=== PATIENT | female | born 1995 | race Caucasian/White ===

== ENCOUNTER 2018-10-21 07:14 | Inpatient (IN) | payer OTHER ==
[~2018-10-21] VITALS: Ht 165.1 cm; Wt 108.4 kg
[2018-10-21] MEDS ORDERED: METHYLERGONOVINE 0.2 MG INJ IM PRN ×2 (08:00→13:00)
[2018-10-21] MEDS ORDERED: OXYTOCIN 30 UNITS/LR 500 ML IV PRN ×2 (08:00→13:00)
[2018-10-21] MEDS ORDERED: CARBOPROST 250 MCG INJ IM PRN ×2 (08:00→13:00)
[2018-10-21] MEDS ORDERED: MISOPROSTOL 200 MCG TAB PR PRN ×2 (08:00→13:00)
[2018-10-21] MEDS ORDERED: CEFAZOLIN 2 GM/50 ML (PMX) 50 ML IVPB SCH (08:00)
[2018-10-21] MEDS ORDERED: LACTATED RINGER'S 1,000 ML IV STA (08:06)
[2018-10-21 08:10] VITALS: Ht 165.1 cm; Wt 108.4 kg
[2018-10-21 08:11] VITALS: BP 112/73; RESP 18
[2018-10-21] MEDS ORDERED: CITRIC ACID/NA CITRATE 30 ML CUP PO ONE (09:00)
[2018-10-21] MEDS ORDERED: ONDANSETRON 4 MG INJ IV ONE (09:00)
[2018-10-21] MEDS ORDERED: OXYTOCIN 10 UNIT INJ ONE (10:23)
[2018-10-21] MEDS ORDERED: OXYTOCIN 30 UNITS/LR 500 ML BAG IV ONE (10:23)
[2018-10-21] MEDS ORDERED: morphine SULFATE/PF (10 MG/10 ML) INJ ONE (10:23)
[2018-10-21] MEDS ORDERED: DEXTROSE 50% 50 ML SYRINGE ONE (10:35)
[2018-10-21] MEDS ORDERED: PHENYLephrine (100 MCG/ML) 10ML SYG ONE (10:35)
[2018-10-21] MEDS ORDERED: METOCLOPRAMIDE 10 MG INJ ONE (10:46)
[2018-10-21] MEDS ORDERED: ONDANSETRON 4 MG INJ ONE (10:46)
[2018-10-21] MEDS ORDERED: KETOROLAC 30 MG INJ ONE (10:46)
[2018-10-21] MEDS ORDERED: DEXAMETHASONE 4 MG/ML 1 ML INJ ONE (10:46)
[2018-10-21] MEDS ORDERED: NALBUPHINE HCL (10 MG/1 ML) INJ IV PRN (11:00)
[2018-10-21] MEDS ORDERED: ONDANSETRON 4 MG INJ IV PRN (11:00)
[2018-10-21] MEDS ORDERED: HYDROCODONE/APAP (5/325) TAB PO PRN (11:00)
[2018-10-21] MEDS ORDERED: DIPHENHYDRAMINE 50 MG INJ IV PRN (11:00)
[2018-10-21] MEDS ORDERED: HYDROmorphONE 0.5 MG/0.5 ML SYG IV PRN ×2 (11:00)
[2018-10-21] MEDS ORDERED: KETOROLAC 30 MG INJ IV PRN (11:00)
[2018-10-21] MEDS ORDERED: TRIMETHOBENZAMIDE 100 MG/ML VIAL IM PRN (11:00)
[2018-10-21] MEDS ORDERED: NALOXONE (0.4 MG/ML) INJ IV PRN (11:00)
[2018-10-21] MEDS ORDERED: morphine 2 MG INJ IV PRN ×2 (11:00)
[2018-10-21] MEDS ORDERED: OXYTOCIN 30 UNITS/LR 500 ML IV SCH (12:36)
[2018-10-21] MEDS ORDERED: LACTATED RINGER'S 1,000 ML IV SCH (12:36)
[2018-10-21] MEDS ORDERED: METHYLERGONOVINE 0.2 MG TAB PO PRN (13:00)
[2018-10-21] MEDS ORDERED: LANOLIN HPA 1 PKT TOP PRN (13:00)
[2018-10-21 16:21] VITALS: BP 92/62; PULSE 73; RESP 18
[2018-10-21 20:00] VITALS: BP 96/50; PULSE 69; RESP 17
[2018-10-21] MEDS: SENNA/DOCUSATE NA (8.6MG/50MG) TAB PO SCH (21:00)
[2018-10-22] VITALS: BP 87/47; PULSE 76; RESP 16
[2018-10-22 04:00] VITALS: BP 84/50; PULSE 79; RESP 17
[2018-10-22 08:30] VITALS: BP 89/56; PULSE 80; RESP 17
[2018-10-22] MEDS: SENNA/DOCUSATE NA (8.6MG/50MG) TAB PO SCH ×2 (09:03→21:23)
[2018-10-22] MEDS ORDERED: HYDROCODONE/APAP (5/325) TAB PO PRN (09:30)
[2018-10-22] MEDS: IBUPROFEN 800 MG TAB PO PRN ×2 (11:50→17:11)
[2018-10-22 15:13] VITALS: BP 109/62; PULSE 92; RESP 16
[2018-10-22 20:18] VITALS: BP 102/65; PULSE 91; RESP 21
[2018-10-23] MEDS: IBUPROFEN 800 MG TAB PO PRN ×3 (00:07→15:25)
[2018-10-23] MEDS: HYDROCODONE/APAP (5/325) TAB PO PRN ×3 (01:15→23:42)
[2018-10-23 04:41] VITALS: BP 82/52; PULSE 68; RESP 19
[2018-10-23 08:00] VITALS: BP 108/64; PULSE 74; RESP 20
[2018-10-23] MEDS: SENNA/DOCUSATE NA (8.6MG/50MG) TAB PO SCH ×2 (09:22→20:33)
[2018-10-23 16:00] VITALS: BP 106/65; PULSE 78; RESP 18
[2018-10-23] MEDS ORDERED: BISACODYL (EC) 5 MG TAB PO STA (19:55)
[2018-10-23] MEDS ORDERED: MAGNESIUM HYDROXIDE 30ML CUP PO STA (19:55)
[2018-10-23 20:15] VITALS: BP 107/58; PULSE 80; RESP 20
[2018-10-24 04:36] VITALS: BP 90/55; PULSE 18; RESP 20
[2018-10-24] MEDS: HYDROCODONE/APAP (5/325) TAB PO PRN (05:04)
[2018-10-24] MEDS ORDERED: BISACODYL (EC) 5 MG TAB PO ONE (06:00)
[2018-10-24] MEDS ORDERED: MAGNESIUM HYDROXIDE 30ML CUP PO ONE (06:00)
[2018-10-24 08:00] VITALS: BP 112/69; PULSE 76; RESP 16
[2018-10-24] MEDS ORDERED: MEASLES,MUMPS,RUBELLA VACCINE INJ SC* ONE (09:00)
[2018-10-24] MEDS: SENNA/DOCUSATE NA (8.6MG/50MG) TAB PO SCH (09:00)
[2018-10-24] MEDS ORDERED: DIPHTH/TET/ACEL PERTUSS (ADULT) 0.5 ML VIAL IM* ONE (09:00)
[2018-10-24] MEDS: IBUPROFEN 800 MG TAB PO PRN (11:39)
== END 2018-10-24 16:28 | disposition home or self-care (01) | DRG 788 ==
LOC: L-D 07:14 → PP1 15:32
PROVIDERS: ADMIT Obstetrics & Gynecology; ATTEND Obstetrics & Gynecology
PROC: 10D00Z1 Extraction of Products of Conception, Low, Open Approach (ICD-10-PCS; principal; 2018-10-21 10:30)
DX: O34.219 Maternal care for unspecified type scar from previous cesarean delivery (principal); O99.02 Anemia complicating childbirth; Z3A.39 39 weeks gestation of pregnancy; Z37.0 Single live birth; D50.9 Iron deficiency anemia, unspecified
CPT/HCPCS: 80048; 82962; 85025; 85610; 85730; 86592; 86850; 86900; 86901; 88307; 99464; J0690; J1100; J1885; J2274; J2370; J2405; J2590; J2765; J7120